=== PATIENT | female | born 1985 | race African-American/Black ===

== ENCOUNTER → 2020-06-28 | Outpatient (CLI) | payer BC ==
[~2020-06-28] MED LIST: AMOXICILLIN 50500 MG PO; BIRTH CONTROL PILLS; FLAGYL500 MG PO; NEXIUM 40MG40 MG PO; NORCO 325 MG-51 TAB PO; PERCOCET 325 MG1 TA2 PO; PHENERGAN 25 TA25 MG PO; PRIL40 PO; ZOFRAN ODT4 MG PO
== END ==
LOC: COL.RAD 07:29
DX: K76.0 Fatty (change of) liver, not elsewhere classified (principal)

== ENCOUNTER 2020-08-22 11:33 | Emergency (ER) | payer BC ==
[~2020-08-22] VITALS: Ht 160 cm; Wt 97.7 kg
[~2020-08-22 11:33] MED LIST changes: -PRIL40 PO
[2020-08-22 11:38] VITALS: BP 129/81; TEMP 97.6
[2020-08-22 11:57] LABS: COLLECTION METHOD CLEAN CATCH
[2020-08-22 12:04] LABS: MUCOUS Present /lpf; PH 8 (5-8); URINE APPEARANCE Hazy; URINE BACTERIA Rare /hpf; URINE BILIRUBIN Negative (NEGATIVE); URINE BLOOD Negative (NEGATIVE); URINE COLOR Yellow; URINE GLUCOSE Negative (NEGATIVE); URINE KETONE Trace (NEGATIVE); URINE LEUKOCYTE ESTERASE Negative (NEGATIVE); URINE NITRATE Negative (NEGATIVE); URINE PROTEIN(semi-quant) 1+ (NEGATIVE); URINE UROBILINOGEN >=4.0 mg/dL (NEGATIVE)
[2020-08-22 12:18] LABS: BASO # 0.1 (0.0-0.2); BASO % 0.7 % (0.0-2.0); EOS # 0.2 (0.0-0.7); EOS % 2.3 % (0-4.0); GRAN # 3.4 (1.4-6.5); GRAN % 48.7 % (42.2-75.2); HEMATOCRIT 40.4 % (37.0-47.0); HEMOGLOBIN 13.1 g/dl (12.5-16.0); LYMPH # 2.7 (1.2-3.4); MEAN CELL VOLUME 82 fl (80.0-100.0); MEAN CORPUSCULAR HEMOGLOBIN 27 pg (27.0-31.0); MEAN CORPUSCULAR HGB CONC 32 g/dl (33.0-37.0); MEAN PLATELET VOLUME 9.9 fl (7.4-10.4); MONO # 0.7 (0.1-0.6); MONO % 10.2 % (1.7-9.3); PLATELET COUNT 331 K/mm3 (130-400); RED BLOOD COUNT 4.95 M/mm3 (4.10-5.30); REDCELL DISTRIBUTION WIDTH-CV 14.2 % (11.5-14.5)
[2020-08-22 12:35] LABS: ALBUMIN 4.6 gm/dL (3.5-5.0); BILIRUBIN,TOTAL 1.3 mg/dL (0.0-1.0); CALCIUM 9.2 mg/dL (8.4-10.2); CREATININE, serum 0.74 (0.52-1.25); POTASSIUM 3.8 mmol/L (3.4-5.0); TOTAL PROTEIN 8.1 gm/dL (6.4-8.2)
[2020-08-22] MEDS ORDERED: PRIL40 PO (13:19)
[2020-08-22 13:31] VITALS: PULSE 80
== END 2020-08-22 13:31 | disposition home or self-care (01) ==
LOC: COL.ER 11:33
PROVIDERS: Nurse Practitioner Primary Care
DX: K21.9 Gastro-esophageal reflux disease without esophagitis (principal); Z87.891 Personal history of nicotine dependence
CPT/HCPCS: J2405; J7030

== ENCOUNTER 2021-04-10 19:51 | Emergency (ER) | payer BC ==
[~2021-04-10] VITALS: Ht 160 cm; Wt 84.1 kg
[~2021-04-10 19:51] MED LIST changes: +PRIL40 PO
[2021-04-10 22:51] VITALS: BP 124/78; PULSE 82; TEMP 98.1
== END 2021-04-10 21:45 | disposition home or self-care (01) ==
LOC: COL.ER 19:51
DX: U07.1 COVID-19 (principal); Z87.891 Personal history of nicotine dependence

== ENCOUNTER → 2023-06-04 | Outpatient (CLI) | payer BC | LOC: MHCPAIN 09:05 | DX: M47.892 Other spondylosis, cervical region (principal); M54.12 Radiculopathy, cervical region | CPT/HCPCS: G0463 ==

== ENCOUNTER → 2023-07-09 | Outpatient (CLI) | payer BC | LOC: MHCPAIN 13:05 | DX: M48.02 Spinal stenosis, cervical region (principal); M54.2 Cervicalgia; E11.9 Type 2 diabetes mellitus without complications; Z79.84 Long term (current) use of oral hypoglycemic drugs | CPT/HCPCS: G0463 ==

== ENCOUNTER → 2023-08-21 | Outpatient (CLI) | payer BC | LOC: MHCPAIN 08-07 16:59 | DX: M47.812 Spondylosis without myelopathy or radiculopathy, cervical region (principal); M54.2 Cervicalgia ==

== ENCOUNTER → 2023-10-02 | Outpatient (CLI) | payer BC | LOC: MHCPAIN 08:35 | DX: M47.812 Spondylosis without myelopathy or radiculopathy, cervical region (principal); M54.2 Cervicalgia ==

== ENCOUNTER → 2024-01-06 | Outpatient (CLI) | payer BC | LOC: MHCPAIN 08:50 | DX: M48.02 Spinal stenosis, cervical region (principal); M54.2 Cervicalgia; E11.9 Type 2 diabetes mellitus without complications | CPT/HCPCS: G0463 ==